=== PATIENT | male | born 1990 | race Caucasian/White ===

== ENCOUNTER 2019-05-09 12:04 | Emergency (ER) | payer SELFPAY ==
[2019-05-09] MEDS ORDERED: IBUPROFEN 600 MG TABLET (FP) PO ONE (12:14)
[2019-05-09] MEDS ORDERED: METHOCARBAMOL 500 MG TABLET PO ONE (12:14)
[2019-05-09 12:22] VITALS: BP 172/74; PULSE 80; TEMP 98; BMI 25.8
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
== END 2019-05-09 15:25 | disposition home or self-care (01) ==
LOC: JER 12:04
DX: S19.80XA Other specified injuries of unspecified part of neck, initial encounter (principal); S49.81XA Other specified injuries of right shoulder and upper arm, initial encounter; M54.12 Radiculopathy, cervical region; M79.601 Pain in right arm; M25.511 Pain in right shoulder; M25.521 Pain in right elbow; Y04.2XXA Assault by strike against or bumped into by another person, initial encounter; Y93.89 Activity, other specified; Y92.238 Other place in hospital as the place of occurrence of the external cause; Y99.0 Civilian activity done for income or pay; Y07.9 Unspecified perpetrator of maltreatment and neglect; I10 Essential (primary) hypertension
CPT/HCPCS: 72125-TC; 73030-TC-RT-FY; 73070-TC-RT-FY; 99282-25